=== PATIENT | male | born 1985 ===

== ENCOUNTER 2022-02-13 17:45 | Inpatient (IN) | payer MEDICAID, OTHER ==
[2022-02-13] MEDS ORDERED: MAGNESIUM HYDROXIDE 2,400 MG/10 ML CUP PO PRN (18:18)
[2022-02-13] MEDS ORDERED: MAG HYDROX/AL HYDROX/SIMETH 30 ML CUP PO PRN (18:18)
[2022-02-13] MEDS ORDERED: LORazepam 1 MG TAB PO PRN (18:18)
[2022-02-13] MEDS ORDERED: HALOPERIDOL LACTATE 5 MG/ML 1 ML VIAL IM PRN (18:18)
[2022-02-13] MEDS ORDERED: haloperidoL 5 MG TAB PO PRN (18:18)
[2022-02-13] MEDS ORDERED: LORazepam 2 MG/ML INJ IM PRN (18:18)
[2022-02-14] MEDS: DIVALPROEX 250 MG TABLET.DR PO SCH ×3 (04:08→21:16)
[2022-02-14] MEDS: atenoloL 50 MG TAB PO SCH (09:15)
--- NOTE | 2022-02-14 11:39 | P.HP ---
Psychiatric H&P - . H&P Date: 02/14/22 History & Physical: Allergies Allergy/AdvReac Type Severity Reaction Status Date / Time No Known Allergies Allergy Verified 02/14/22 04:07 Vital Signs Temp 96.6 F L 02/14/22 03:59 Pulse 90 02/14/22 08:00 Resp 18 02/14/22 03:59 BP 127/75 02/14/22 08:00 Pulse Ox 97 02/14/22 03:59 FiO2 Intake & Output 02/13/22 02/14/22 02/14/22 18:59 06:59 18:59 Weight 100 kg 110.4 kg 02/14/22 11:39 IDENTIFYING DATA: Patient is a single, unemployed, 36-year-old male transferred from [facility] for psychotic and bizarre behavior. HPI: Patient presented to the hospital on 02/14/2022, transferred from [facility] for psychiatric evaluation. The patient was petitioned and certified. As per petition filled out by the patrol police sergeant, "the patient was noted to make random statements that don't make any sense. Vasyl hasn't slept, I can't remember the last time he ate food. Vasyl was unable to answer basic questions. Vasyl pulled his pants down in public." Upon evaluation at [facility] by the emergency physician, the patient was noted to "have poor insight and judgment, states that he is living in the [facility] but moving to [place] to live in a mansion with his cousin. Told ER staff that he was in a [employer] shop and his cousin is . Flight of ideas with tangential thought process." History and physical examination was completed by the emergency room physician on 02/08/2022 who noted that the patient has a history of psychosis and hallucinations and was dropped off by police for "wandering around." Patient states that he was unsure who called police and stated that he was picked up for "walking around." The patient is noted to be homeless. Blood alcohol and urine toxicology were negative. He was petitioned and certified and transferred to our psychiatric unit. The patient was started on Seroquel 300 mg at bedtime while at [facility]. He reported no home medications. On evaluation on the psychiatric unit, the patient is not reporting any suicidal or homicidal ideation, intention, and/or plan. He is not reporting any auditory or visual hallucinations. He is denying any paranoia or overt delusions. The patient states that he was in the mall applying for jobs. However, the patient does acknowledge that having his pants down at times was inappropriate. He is currently alert and oriented to person and place. He is somewhat disoriented to time, believing that dinnertime was soon. Although he is tangential, the patient is redirectable. She is denying any significant psychiatric history to this provider. He reports no history of drug use or alcohol use. When asked about housing, the patient states that he lives in "[facility]." He is unable to provide any clear address. The patient does request for discharge with plans to return back to [facility]. PAST PSYCHIATRIC HISTORY: Patient states that he has no psychiatric history. Patient denies being on any psychiatric medications. Seroquel was started while he was at the emergency department. Patient denies any previous psychiatric hospitalizations. Patient denies any psychiatric outpatient follow-up. Patient denies any history of suicide attempts in the past. PMH: denies ALLERGIES: NO KNOWN DRUG ALLERGIES CHEMICAL DEPENDENCY HISTORY: Patient denies any substance use or alcohol use. FAMILY PSYCHIATRIC/SUBSTANCE USE HISTORY: denies SOCIAL HISTORY: Patient was born and raised in [place]. He is currently homeless. He states that he is single, never , and has no children. He reports that he is unemployed. MENTAL STATUS EXAM: General Appearance: Patient appears to be stated age is alert, directable, and attempts to cooperate. Patient appears to have disheveled hygiene and grooming. Behavior: Patient is seated without any agitated behavior. Eye contact is appropriate. Speech: Patient's speech is fluent and nonpressured. Tangential but redirectable. Mood/Affect: Patient reports their mood is feeling good, affect is constricted. Suicidality/Homicidality: Patient is denying any suicidal or homicidal ideation. Perceptions: Patient denies any visual hallucinations and denies any auditory hallucinations Though content/process: Some tangentiality and disorganization however redirectable. Memory and concentration: Patient is alert and oriented to person and place only. Concentration appears to be poor. Judgment and insight: poor STRENGTHS/WEAKNESSES: Unable to identify patient strengths. Weakness is that patient appears to be homeless INTELLECT: average IMPRESSIONS: Brief psychotic episode PLAN: -Patient is admitted under involuntary however converted to voluntary status to MHU for stabilization of psychiatric symptoms and safety. Patient signed adult voluntary form and is placed in patient's chart. -Medications : Will start patient on Depakote 700 mg by mouth twice a day for mood stabilization Seroquel 200 mg by mouth at bedtime for psychosis -Ativan and Haldol PRN for agitation/aggression -Patient was counselled on substance abuse and desired to cut back on use -Patient was informed of the risks, benefits and side effects of the medication and patient verbally consented to taking the medications. -Internal Medicine consult to perform medical evaluation and physical. -SW on board for discharge planning. Encourage patient to participate in groups to work on coping skills.
[2022-02-14] MEDS ORDERED: QUEtiapine 100 MG TAB PO SCH (21:00)
--- NOTE | 2022-02-15 06:18 | P.PN ---
Progress Note - Text Progress Note Date: 02/15/22 patient refused to meet with the medical doc for evaluation
[2022-02-15] MEDS: DIVALPROEX 250 MG TABLET.DR PO SCH ×2 (09:41→20:26)
[2022-02-15] MEDS: atenoloL 50 MG TAB PO SCH (09:41)
--- NOTE | 2022-02-15 12:18 | P.PN ---
Progress Note - Text Progress Note Date: 02/15/22 Interval History: Patient was seen wandering the hallways and was directable and agreeable to speak with radio script writer in the office. Currently, the patient continues to be significantly disorganized. He is alert and oriented to self only. He is unable to identify the year or month. The patient however is requesting to go home. However, the patient is easily distracted and appears to be fixated on food. He identifies his home being [facility] however does not provide any specifics. He is currently denying any suicidal or homicidal ideation, intention, and/or plan. He is not reporting any auditory or visual hallucinations. He denies any paranoia or other delusions. He has been adherent with his medication is not reporting any significant side effects. The patient has not showered or dressed his hygiene. Mental Status Exam: General Appearance: Patient appears to be stated age is alert, however needs frequent redirection and is intermittently cooperative. Hygiene and grooming is very poor. Behavior: Patient displays elevated psychomotor activity. Speech: Patient's speech is fluent and nonpressured. Nonsensical at times. Mood/Affect: Mood is "I need to go." Affect is constricted. Suicidality/Homicidality: Patient denies having any suicidal or homicidal ideation intent or plan. Perceptions: Patient denies any visual hallucinations and denies any auditory hallucinations Though content/process: Patient appears to be grossly disorganized. Fixated on discharge. Memory and concentration: Alert and oriented to self only, concentration is grossly poor. Judgment and insight: Poor Vital Signs Temp 96.6 F L 02/14/22 03:59 Pulse 90 02/14/22 08:00 Resp 18 02/14/22 03:59 BP 127/75 02/14/22 08:00 Pulse Ox 97 02/14/22 03:59 FiO2 Assessment Brief psychotic episode Rule out schizophrenia Plan: -Patient continues to meet criteria for inpatient psychiatric admission for symptom stabilization and safety. Patient has signed adult voluntary form and medication consent and was placed in patient's chart. -Medications: Continue Depakote 750 mg by mouth twice a day for mood stabilization Increase Seroquel to 400 mg by mouth at bedtime for psychosis -When necessary Ativan and Haldol for agitation/aggression. -SW on board for discharge planning. Encouraged the patient to participate in milieu.
[2022-02-15 15:26] LABS: Basophils % (A) 0 %; Eosinophils # (A) 0.1 k/uL (0-0.7); Eosinophils % (A) 2 %; HCT 48.9 % (39.0-53.0); HGB 15.3 gm/dL (13.0-17.5); Lymphocytes # (A) 2.9 k/uL (1.0-4.8); Lymphocytes % (A) 47 %; MCH 29.7 pg (25.0-35.0); MCHC 31.4 g/dL (31.0-37.0); MCV 94.7 fL (80.0-100.0); Mean Platelet Volume 7.5; Monocytes # (A) 0.4 k/uL (0-1.0); Monocytes % (A) 6 %; Neutrophils # (A) 2.7 k/uL (1.3-7.7); Neutrophils % (A) 43 %; Platelet Count 237 k/uL (150-450); RBC 5.16 m/uL (4.30-5.90); RDW 13.8 % (11.5-15.5); WBC 6.2 k/uL (3.8-10.6)
[2022-02-15 15:42] LABS: ALT 18 U/L (4-49); AST 22 U/L (17-59); African American GFR (CKD) >90 (>60 ml/min/1.73 sqM); Albumin 4.2 g/dL (3.5-5.0); Alkaline Phosphatase 60 U/L (38-126); Anion Gap 12 mmol/L; Blood Urea Nitrogen 16 mg/dL (9-20); Calcium 9.5 mg/dL (8.4-10.2); Carbon Dioxide 27 mmol/L (22-30); Chloride 100 mmol/L (98-107); Glucose 108 mg/dL (74-99); Non-African American GFR(CKD) >90 (>60 ml/min/1.73 sqM); Potassium 4.6 mmol/L (3.5-5.1); Sodium 139 mmol/L (137-145); Total Bilirubin 0.4 mg/dL (0.2-1.3); Total Protein 7.3 g/dL (6.3-8.2)
[2022-02-15] MEDS: QUEtiapine 100 MG TAB PO SCH (20:26)
[2022-02-16] MEDS: DIVALPROEX 250 MG TABLET.DR PO SCH ×2 (08:19→21:10)
[2022-02-16] MEDS: atenoloL 50 MG TAB PO SCH (09:45)
[2022-02-16] MEDS: ACETAMINOPHEN TAB 325 MG TAB PO PRN (09:46)
--- NOTE | 2022-02-16 19:35 | P.PN ---
Progress Note - Text Progress Note Date: 02/16/22 Interval history: Patient was seen in the [facility] and was directable and agreeable to speak with staff writer. He reports stable mood and denies any immediate concerns. At this time, patient denies any suicidal or homicidal ideation, intent or plan. Denies any auditory or visual hallucinations. Patient denies any side effects from the medications and has been compliant with meds. Mental status exam: General Appearance: Patient appears to be stated age, adequate hygiene. Behavior: Patient is calm without any agitated behavior. Speech: Patient's speech is fluent and non-pressured. Mood/Affect: Patient reports their mood is "alright", affect is congruent and constricted. Suicidality/Homicidality: Patient denies having any homicidal ideation intent or plan. He denies any suicidal ideation, intent or plan. Perceptions: Patient denies any visual hallucinations and denies any auditory hallucinations. Though content/process: There is no evidence of any delusional thought content and thought process is linear and goal-directed. Memory and concentration: AOX3, grossly intact for the purposes of this session. Judgment and insight: improving mildly Assessment/Plan: Continue with current diagnosis. Patient continues to meet criteria for inpatient psychiatric admission for symptom stabilization and safety. Patient will be maintained on current psychotropic medication regimen. Monitor for medication compliance and for any psychotropic medication side effects. Will continue to monitor ongoing response to treatment. Encouraged participation in milieu.
[2022-02-16] MEDS: QUEtiapine 100 MG TAB PO SCH (21:10)
--- NOTE | 2022-02-16 22:41 | P.PN ---
Progress Note - Text Progress Note Date: 02/16/22 The patient refused to be seen or be evaluated. He reports that he has no chronic medical conditions and that he does not have any physical complaints and thereby does not wish to be seen.
[2022-02-17] MEDS: ACETAMINOPHEN TAB 325 MG TAB PO PRN ×2 (06:23→18:26)
[2022-02-17] MEDS: atenoloL 50 MG TAB PO SCH (09:32)
[2022-02-17] MEDS: DIVALPROEX 250 MG TABLET.DR PO SCH (09:33)
[2022-02-17] MEDS: VALPROIC ACID ORAL SOLN 250 MG/5 ML CUP PO SCH ×2 (13:09→20:40)
--- NOTE | 2022-02-17 15:34 | P.PN ---
Progress Note - Text Progress Note Date: 02/17/22 Interval history: Patient was seen in the [facility] and was directable and agreeable to speak with gag writer. He appears somewhat impulsive and intrusive today. Nurse informed me that this morning patient was observed to "palm" his medication, meaning he was observed to keep the medication in his hands and pretended he took it. Nurse discussed this patient and he admitted he didn't to take the Depakote. Nurse also informs me was noncompliant with his Depakote yesterday morning. I discussed the Depakote with patient and changed it to liquid valproic acid and he took the liquid form this afternoon. He continued to derail during assessment to talk about "sleeping on the floor...concrete that's all there is" which appears to refer to after discharge he will be sleeping outside on the ground. I encouraged him to discuss these concerns with his criminal justice social worker and primary team tomorrow. At this time, patient denies any suicidal or homicidal ideation, intent or plan. Denies any auditory or visual hallucinations. Patient denies any side effects from the medications. Mental status exam: General Appearance: Patient appears to be stated age, adequate hygiene, dressed in hospital gown. Behavior: Patient is calm without any agitated behavior. Speech: Patient's speech is fluent and non-pressured. Mood/Affect: Patient reports his mood is "alright", affect is congruent and constricted. Suicidality/Homicidality: Patient denies having any homicidal ideation intent or plan. He denies any suicidal ideation, intent or plan. Perceptions: Patient denies any visual hallucinations and denies any auditory hallucinations. Though content/process: There is no evidence of any delusional thought content and thought process is linear and goal-directed. Memory and concentration: AOX3, grossly intact for the purposes of this session. Judgment and insight: improving mildly Assessment/Plan: Continue with current diagnosis. Patient continues to meet criteria for inpatient psychiatric admission for symptom stabilization and safety. Depakote tablets 750 mg po BID changed to Valproic Acid liquid 750 mg po BID for mood stabilization, due to noncompliance with oral tablets. Check Valproic acid level in 3-4 days. Monitor for medication compliance and for any psychotropic medication side effects. Will continue to monitor ongoing response to treatment. Encouraged participation in milieu.
[2022-02-17] MEDS: QUEtiapine 100 MG TAB PO SCH (20:41)
[2022-02-18 06:41] VITALS: RESP 14; TEMP 97.4
[2022-02-18] MEDS: atenoloL 50 MG TAB PO SCH (08:22)
[2022-02-18] MEDS: VALPROIC ACID ORAL SOLN 250 MG/5 ML CUP PO SCH (08:22)
[2022-02-18 08:24] VITALS: BP 126/72; PULSE 82
--- NOTE | 2022-02-18 11:11 | P.DS ---
Providers Date of admission: 02/14/22 03:54 Expected date of discharge: 02/18/22 Attending physician: Kendall Lopez MD Consults: 02/13/22 18:18 Consult Physician Routine Consulting Provider: Omar Sinclair Consult Reason/Comments: H & P medical managment Do you want consulting provider notified?: Yes, Notify in am Primary care physician: Stated None - Discharge Diagnosis(es) (1) Schizophrenia Current Visit: Yes Status: Acute Priority: High (2) Cognitive developmental delay Current Visit: Yes Status: Chronic Priority: Medium Hospital Course: Admission HPI: Patient is a single, unemployed, 36-year-old male transferred from [facility] for psychotic and bizarre behavior. Patient presented to the hospital on 02/14/2022, transferred from [facility] for psychiatric evaluation. The patient was petitioned and certified. As per petition filled out by the [place], "the patient was noted to make random statements that don't make any sense. Vasyl hasn't slept, I can't remember the last time he ate food. Vasyl was unable to answer basic questions. Vasyl pulled his pants down in public." Upon evaluation at [facility] by the emergency physician, the patient was noted to "have poor insight and judgment, states that he is living in the [facility] but moving to [place] to live in a mansion with his cousin. Told ER staff that he was in a [employer] shop and his cousin is . Flight of ideas with tangential thought process." History and physical examination was completed by the emergency room physician on 02/08/2022 who noted that the patient has a history of psychosis and hallucinations and was dropped off by police for "wandering around." Patient states that he was unsure who called police and stated that he was picked up for "walking around." The patient is noted to be homeless. Blood alcohol and urine toxicology were negative. He was petitioned and certified and transferred to our psychiatric unit. The patient was started on Seroquel 300 mg at bedtime while at [facility]. He reported no home medications. On evaluation on the psychiatric unit, the patient is not reporting any suicidal or homicidal ideation, intention, and/or plan. He is not reporting any auditory or visual hallucinations. He is denying any paranoia or overt delusions. The patient states that he was in the mall applying for jobs. However, the patient does acknowledge that having his pants down at times was inappropriate. He is currently alert and oriented to person and place. He is somewhat disoriented to time, believing that dinnertime was soon. Although he is tangential, the patient is redirectable. She is denying any significant psychiatric history to this provider. He reports no history of drug use or alcohol use. When asked about housing, the patient states that he lives in "[facility]." He is unable to provide any clear address. The patient does request for discharge with plans to return back to [facility]. Patient states that he has no psychiatric history. Patient denies being on any psychiatric medications. Seroquel was started while he was at the emergency department. Patient denies any previous psychiatric hospitalizations. Patient denies any psychiatric outpatient follow-up. Patient denies any history of suicide attempts in the past. Hospital course: Upon admission to the unit patient was initially disorganized, disheveled, and unable to provide a clear history to this provider. Patient was however directable and agreeable to commence treatment. Patient got along well with other patients on the unit and followed unit protocol. Patient was started on Depakote for mood stabilization and Seroquel for psychosis out of concern for the patient being grossly disorganized with a working diagnosis of schizophrenia versus bipolar disorder.. Patient spoke of his stressors and engaged in therapy both group and individual. Patient was also seen by medical team for history and physical exam. Throughout the course of the hospitalization patient gradually improved with regards to his mood and organization. Furthermore, he began to develop better insight and judgment was much more linear and logical in short conversation. The patient was nonadherent with his Depakote at times however was changed into a liquid formulation, the patient became adherent. On the day of discharge patient denied any suicidal or homicidal ideations intent or plan denied any auditory or visual hallucinations. Patient reports a strong desire to live and is future and goal oriented. The patient denied any access to guns or weapons. Patient denied any paranoia and did not endorse any delusions. Patient does not have a significant history of substance abuse however was counseled on abstaining from all substances including alcohol and marijuana. Patient was also counseled on the medications and need for regular compliance and was encouraged to follow-up with their outpatient appointment for mental health and also for primary care. Patient was provided with resources for housing in [facility]. Mental status exam: General Appearance: Patient appears to be stated age is alert, pleasant, and cooperative. Patient is in no acute distress and has improved hygiene and grooming Behavior: Patient is calmly seated without any agitated behavior. Speech: Patient's speech is fluent and nonpressured. Mood/Affect: Patient reports their mood is "I'm ready to leave here", affect is congruent and constricted. Suicidality/Homicidality: Patient denies having any suicidal or homicidal ideation intent or plan. Perceptions: Patient denies any auditory or visual hallucinations. Though content/process: There is no evidence of any delusional thought content and thought process is linear and goal-directed. Patient is future oriented. Memory and concentration: Patient is alert and oriented to self and place only, concentration grossly intact for the purposes of this session. Can spell "WORLD" backwards correctly. Judgment and insight: Improved with guarded prognosis Impression: Schizophrenia Developmental disability Plan: -Continue with discharge today as patient has improved and stabilized psychiatrically and is not currently an imminent threat to himself and/or others. Patient will remain at chronically elevated risk for harm to self and/or others due to his homelessness and developmental delay. -Continue medications: Depakene syrup 750 mg by mouth twice a day for mood stabilization Seroquel 400 mg by mouth at bedtime for mood stabilization/psychosis -Patient was counseled on the need for medication compliance and appropriate follow-up at mental health and also primary care for medical issues. Patient verbalized understanding and agreed. -Social work to arrange for and conduct family meeting to ensure safety upon discharge and answer any questions/concerns. Social work also to arrange for patients follow up appointments with the [facility] for psychiatric care along with follow up with primary care provider. -Patient counseled on abstaining from recreational drugs and marijuana and alcohol. Was informed/educated on the adverse effects on their physical and mental health. Patient verbally agreed and understood. -Patient was instructed to return to the hospital or seek immediate medical care if their psychiatric or medical symptoms do worsen or reoccur. -Psychoeducation and supportive therapy provided to patient. Risks and benefits of pharmacological treatment versus the risks and benefits of nontreatment weight and discussed. Informed consent discussion held. Common side effects of psychotropics discussed such as, but not limited to headache, GI disturbance, sexual dysfunction, movement disorders, sedation, and orthostatic hypotension. Life threatening and blackbox warnings of prescribed medications also discussed. Potential risks of operating a vehicle or heavy machinery discussed with patient at length. Advised on importance of compliance and a reliable and responsible manner. Patient advised to review FDA consumer labeling of all medications prior to taking. Patient verbalized understanding of potential risks, and agrees with current treatment plan. Patient advised to medically contact physician/emergency personnel if any acute changes in condition occur. Allergies Allergy/AdvReac Type Severity Reaction Status Date / Time No Known Allergies Allergy Verified 02/14/22 04:07 Laboratory Results WBC 6.2 k/uL (3.8-10.6) 02/15/22 15:15 RBC 5.16 m/uL (4.30-5.90) 02/15/22 15:15 Hgb 15.3 gm/dL (13.0-17.5) 02/15/22 15:15 Hct 48.9 % (39.0-53.0) 02/15/22 15:15 MCV 94.7 fL (80.0-100.0) 02/15/22 15:15 MCH 29.7 pg (25.0-35.0) 02/15/22 15:15 MCHC 31.4 g/dL (31.0-37.0) 02/15/22 15:15 RDW 13.8 % (11.5-15.5) 02/15/22 15:15 Plt Count 237 k/uL (150-450) 02/15/22 15:15 MPV 7.5 02/15/22 15:15 Neutrophils % 43 % 02/15/22 15:15 Lymphocytes % 47 % 02/15/22 15:15 Monocytes % 6 % 02/15/22 15:15 Eosinophils % 2 % 02/15/22 15:15 Basophils % 0 % 02/15/22 15:15 Neutrophils # 2.7 k/uL (1.3-7.7) 02/15/22 15:15 Lymphocytes # 2.9 k/uL (1.0-4.8) 02/15/22 15:15 Monocytes # 0.4 k/uL (0-1.0) 02/15/22 15:15 Eosinophils # 0.1 k/uL (0-0.7) 02/15/22 15:15 Basophils # 0.0 k/uL (0-0.2) 02/15/22 15:15 Sodium 139 mmol/L (137-145) 02/15/22 15:15 Potassium 4.6 mmol/L (3.5-5.1) 02/15/22 15:15 Chloride 100 mmol/L (98-107) 02/15/22 15:15 Carbon Dioxide 27 mmol/L (22-30) 02/15/22 15:15 Anion Gap 12 mmol/L 02/15/22 15:15 BUN 16 mg/dL (9-20) 02/15/22 15:15 Creatinine 1.07 mg/dL (0.66-1.25) 02/15/22 15:15 Est GFR (CKD-EPI)AfAm >90 (>60 ml/min/1.73 sqM) 02/15/22 15:15 Est GFR (CKD-EPI)NonAf >90 (>60 ml/min/1.73 sqM) 02/15/22 15:15 Glucose 108 mg/dL (74-99) H 02/15/22 15:15 Calcium 9.5 mg/dL (8.4-10.2) 02/15/22 15:15 Total Bilirubin 0.4 mg/dL (0.2-1.3) 02/15/22 15:15 AST 22 U/L (17-59) 02/15/22 15:15 ALT 18 U/L (4-49) 02/15/22 15:15 Alkaline Phosphatase 60 U/L (38-126) 02/15/22 15:15 Total Protein 7.3 g/dL (6.3-8.2) 02/15/22 15:15 Albumin 4.2 g/dL (3.5-5.0) 02/15/22 15:15 Valproic Acid 47.9 ug/mL 02/17/22 12:13 Vital Signs Temp 97.4 F L 02/18/22 06:28 Pulse 82 02/18/22 08:23 Resp 14 02/18/22 06:28 BP 126/72 02/18/22 08:23 Pulse Ox 96 02/18/22 06:28 FiO2 Patient Condition at Discharge: Stable Plan - Discharge Summary Discharge Rx Participant: Yes New Discharge Prescriptions: New Valproic Acid Oral Soln [Depakene Syrup] 750 mg PO BID 30 Days ml QUEtiapine [SEROquel] 400 mg PO HS 30 Days tab atenoloL [Tenormin] 50 mg PO DAILY 30 Days tab Discharge Medication List QUEtiapine [SEROquel] 400 mg PO HS 30 Days tab 02/18/22 [Rx] Valproic Acid Oral Soln [Depakene Syrup] 750 mg PO BID 30 Days ml 02/18/22 [Rx] atenoloL [Tenormin] 50 mg PO DAILY 30 Days tab 02/18/22 [Rx] Follow up Appointment(s)/Referral(s): [facility] [Other] - 1 Week Patient Instructions/Handouts: Brief Psychotic Disorder (DC) Activity/Diet/Wound Care/Special Instructions: Avoid the use of street drugs and alcohol. Take all prescriptions as prescribed. When you are in need of refills on your medications, please contact your medical provider and/or outpatient psychiatrist to have this done. Please go to scheduled outpatient appointment for aftercare treatment. If symptoms return or become worse, call the crisis line at and/or go to the nearest emergency room for evaluation. Discharge Disposition: HOME SELF-CARE
== END 2022-02-18 12:25 | disposition home or self-care (01) | DRG 885 ==
LOC: 3MHU 02-14 03:54
PROVIDERS: ADMIT Psychiatry & Neurology Psychiatry; ATTEND Psychiatry & Neurology Psychiatry
DX: F20.9 Schizophrenia, unspecified (principal); R45.851 Suicidal ideations; F81.9 Developmental disorder of scholastic skills, unspecified; Z59.00 Homelessness unspecified; Z79.899 Other long term (current) drug therapy; Z91.19 Patient's noncompliance with other medical treatment and regimen
CPT/HCPCS: 80053; 80164; 85025